=== PATIENT | female | born 1960 | race African-American/Black ===

== ENCOUNTER 2017-12-16 08:02 | Day surgery (SDC) | payer OTHER, BC ==
[2017-11-04 11:36] LABS: HEMATOCRIT 31.7 % (36.0-47.0); HEMOGLOBIN 10.2 g/dL (12.0-15.5); MEAN CORPUSCULAR HEMOGLOBIN 20.3 pg (27.0-33.4); MEAN CORPUSCULAR HGB CONC 32.3 g/dL (32.0-36.0); PLATELET COUNT 238 10^3/uL (150-450); RED BLOOD COUNT 5.03 10^6/uL (3.72-5.28); RED CELL DISTRIBUTION WIDTH 17.8 % (11.5-14.0)
[2017-11-04 11:39] LABS: MEAN CORPUSCULAR VOLUME 63 fl (80-97)
[2017-11-04 11:40] LABS: APPEARANCE,URINE CLEAR; BILIRUBIN,URINE NEGATIVE (NEGATIVE); COLOR,URINE YELLOW; GLUCOSE, URINE NEGATIVE (NEGATIVE); KETONES,URINE NEGATIVE (NEGATIVE); LEUKOCYTE ESTERASE,URINE NEGATIVE (NEGATIVE); NITRITE,URINE NEGATIVE (NEGATIVE); PROTEIN,URINE NEGATIVE (NEGATIVE); URINE SPECIFIC GRAVITY 1.024; UROBILINOGEN,URINE NEGATIVE mg/dL (<2.0)
[2017-11-05 13:12] LABS: PATH REVIEW PATHOLOGIST REVIEWED
[~2017-12-16 08:02] MED LIST: CEFAZOLIN 1 GM/D5W RTU 1 GM/50 ML RTUPB IV ONE; CEFAZOLIN 1 GM/D5W RTU 1 GM/50 ML RTUPB IV PRN; LACTATED RINGERS 1000 ML IV PRN
[2017-12-16] MEDS ORDERED: FAMOTIDINE INJ/PF 20 MG/2 ML SDV IV ONE ×2 (09:21→09:25)
[2017-12-16] MEDS ORDERED: DEXAMETHASONE SOD PHOSPHATE INJ 4 MG/1 ML VIAL ONE (09:55)
[2017-12-16] MEDS ORDERED: MIDAZOLAM 2 MG/2 ML INJ ONE (09:55)
[2017-12-16] MEDS ORDERED: FENTANYL CITRATE INJ/PF 100 MCG/2 ML AMPUL ONE (09:55)
[2017-12-16] MEDS ORDERED: ONDANSETRON HCL INJ/PF 4 MG/2 ML SDV ONE (09:56)
[2017-12-16] MEDS ORDERED: PROPOFOL INJ 200 MG/20 ML VIAL IV ONE (09:56)
[2017-12-16] MEDS ORDERED: DIPHENHYDRAMINE HCL 50 MG/ML VIAL IV PRN (10:36)
[2017-12-16] MEDS ORDERED: MEPERIDINE HCL/PF INJ 25 MG/1 ML DISP.SYRIN IV PRN (10:36)
[2017-12-16] MEDS ORDERED: PROMETHAZINE HCL INJ 25 MG/1 ML VIAL IV PRN ×2 (10:36)
[2017-12-16] MEDS ORDERED: MORPHINE SULFATE 10 MG/ML INJ IV PRN (10:36)
[2017-12-16] MEDS ORDERED: FENTANYL CITRATE INJ/PF 100 MCG/2 ML AMPUL IV PRN ×3 (10:36)
[2017-12-16] MEDS ORDERED: ONDANSETRON 4 MG TAB.RAPDIS PO PRN (11:42)
--- NOTE | 2017-12-16 11:51 | OPERATIVE REPORT E ---
Operative Report NAME: ANA GOODWIN : 1960 AGE: 57Y DATE OF SURGERY: 12/16/2017 ROOM: PREOPERATIVE DIAGNOSIS: POSTMENOPAUSAL BLEEDING. POSTOPERATIVE DIAGNOSIS: 1. POSTMENOPAUSAL BLEEDING. 2. UTERINE POLYPS. OPERATION: Diagnostic hysteroscopy with polypectomy and D and C. SURGEON: Cornell MARSHALL M.D. ANESTHESIA: General. ESTIMATED BLOOD LOSS: Less than 10 mL. TISSUE REMOVED OR ALTERED: Polyp and endometrial tissue. PROCEDURE: The patient was placed in dorsal lithotomy position, prepped, and draped in the usual sterile fashion. Speculum placed and cervix visualized and grasped with a single-tooth tenaculum. The cervix was stenotic and it took lacrimal duct dilators to gradually dilate the cervix to accept the hysteroscope. Hysteroscopy performed with a large polyp being noted. MyoSure was then used to remove the polyp. Following the MyoSure polypectomy, sharp curettage was performed. Moderate amount of tissue was recovered. The single-tooth tenaculum then removed and procedure terminated. She was taken to the Recovery Room in good condition. DICTATING PHYSICIAN: Cornell MARSHALL M.D. [id number] PHY#: [id number] ID: [id number] JOB#: [id number] ACCT: [id number] cc:Cornell MARSHALL M.D. >
[2017-12-16] MEDS ORDERED: IBUPROFEN 800 MG TABLET ONE (12:27)
[2017-12-16 13:34] VITALS: BP 141/87
[2017-12-16] MEDS ORDERED: IBUPROFEN 800 MG TABLET PO SCH (14:00)
[2017-12-16] MEDS ORDERED: SUCCINYLCHOLINE CHLORIDE INJ 200 MG/10 ML VIAL ONE (14:17)
--- NOTE | 2017-12-16 17:00 | EKG REPORT ---
SEVERITY:- OTHERWISE NORMAL ECG - SINUS RHYTHM BORDERLINE LEFT AXIS DEVIATION : Confirmed by: Vita Cox MD 16-Dec-2017 17:00:09
== END 2017-12-16 13:35 | disposition home or self-care (01) ==
LOC: OROUT 08:02
PROVIDERS: ATTEND Obstetrics & Gynecology Gynecology
DX: N84.0 Polyp of corpus uteri (principal); N95.0 Postmenopausal bleeding; I10 Essential (primary) hypertension; D64.9 Anemia, unspecified; E03.9 Hypothyroidism, unspecified; Z79.899 Other long term (current) drug therapy; Z79.82 Long term (current) use of aspirin; Z01.818 Encounter for other preprocedural examination
CPT/HCPCS: 36415; 85027; 81005; 88305 ×2; 93005; 93010; 58558; J2250; J0690; J1100; J3010; J0330; J2405; J2704; S0028; 952